=== PATIENT | female | born 1945 | race Hispanic/Latino ===

== ENCOUNTER → 2019-03-05 | Day surgery (SDC) | payer MEDICARE, MEDICAID ==
[~2019-03-05] MED LIST: Phenylephrine 2.5% Ophth Soln 2 ML Bot EYEBOTH SCH; Tropicamide 1% Ophth Soln 15 ML Bottle EYEBOTH SCH; Tropicamide 1% Ophth Soln 3 ML Bottle EYEBOTH SCH
[2019-03-05] MEDS: Brimonidine 0.2% Ophth Soln 5 ML Bottle EYEBOTH SCH ×2 (09:26→10:05)
== END ==
LOC: JD.SDS 09:12
PROVIDERS: ATTEND Ophthalmology
DX: E11.36 Type 2 diabetes mellitus with diabetic cataract (principal); H35.3131 Nonexudative age-related macular degeneration, bilateral, early dry stage; H02.834 Dermatochalasis of left upper eyelid; H02.831 Dermatochalasis of right upper eyelid; H16.223 Keratoconjunctivitis sicca, not specified as Sjogren's, bilateral; I10 Essential (primary) hypertension; E78.00 Pure hypercholesterolemia, unspecified; K21.9 Gastro-esophageal reflux disease without esophagitis; M19.90 Unspecified osteoarthritis, unspecified site; Z96.1 Presence of intraocular lens; Z87.891 Personal history of nicotine dependence; Z79.84 Long term (current) use of oral hypoglycemic drugs; Z79.899 Other long term (current) drug therapy

== ENCOUNTER 2019-09-17 09:44 | Day surgery (SDC) | payer MEDICARE, MEDICAID ==
[~2019-09-17 09:44] MED LIST changes: +Lactated Ringers 1,000 ML IV SCH; +Lidocaine 1%/Sod Bicarbonate in NS 8.4% 1 ML Syringe IDERM PRN; -Phenylephrine 2.5% Ophth Soln 2 ML Bot EYEBOTH SCH; +Sodium Chloride 0.9% 10 ML Syringe FLUSH PRN; -Tropicamide 1% Ophth Soln 15 ML Bottle EYEBOTH SCH; -Tropicamide 1% Ophth Soln 3 ML Bottle EYEBOTH SCH
[2019-09-17] MEDS ORDERED: Sodium Chloride 0.9% 1,000 ML IV SCH (10:00)
--- NOTE | 2019-09-17 10:33 | PCM.PREANE ---
Preanesthetic Assessment - Procedure Proposed Procedure: EGD, Colonoscopy - Anesthesia/Transfusion/Family Hx Anesthesia History: Prior Anesthesia Without Reaction Family History of Anesthesia Reaction: No Transfusion History: No Prior Transfusion(s) - Review of Systems General: No Symptoms Pulmonary: No Symptoms Cardiovascular: Palpitations ("not today but every once in a while"), Dyspnea on Exertion Gastrointestinal: No Symptoms Neurological: No Symptoms Other: Reports: Diabetes (136 this am 1111), Liver Problems (fatty liver) - Physical Assessment NPO Status Date: 09/16/19 NPO Status Time: 00:00 Height: 1.6 m Weight: 68.946 kg ASA Class: 3 Mental Status: Alert & Oriented x3 Airway Class: Mallampati = 2 Dentition: Reports: Dentures Thyro-Mental Finger Breadths: 2 Mouth Opening Finger Breadths: 2 ROM/Head Extension: Full Lungs: Clear to Auscultation, Normal Respiratory Effort Cardiovascular: Regular Rate, Regular Rhythm, Bradycardia - Imaging/EKG Impressions: EKG Sinus rhythm, anterior infract age indeterminate Rate 53 - Allergies Allergies/Adverse Reactions: Allergies Allergy/AdvReac Type Severity Reaction Status Date / Time Penicillins Allergy Cannot Verified 09/16/19 14:43 Remember - Blood Blood Available: No Product(s) Available: None - Anesthesia Plan Pre-Op Medication Ordered: None - Acknowledgements Anesthesia Type Planned: MAC Pt an Appropriate Candidate for the Planned Anesthesia: Yes Alternatives and Risks of Anesthesia Discussed w Pt/Guardian: Yes Pt/Guardian Understands and Agrees with Anesthesia Plan: Yes PreAnesthesia Questionnaire HEENT History: Reports: Hard of Hearing, Other (See Below) Other HEENT History: Eye disorder, hearing loss, tinnitis Cardiovascular History: Reports: Heart Failure, High Cholesterol, Hypertension, Other (See Below) Other Cardiovascular History: edema Respiratory History: Reports: None Gastrointestinal History: Reports: GERD Genitourinary History: Reports: Other (See Below) Other Genitourinary History: dysuria, UTI [employer] History: Reports: None Musculoskeletal History: Reports: Arthritis, Back Pain, Chronic, Osteoarthritis Neurological History: Reports: Vertigo Psychiatric History: Reports: Other (See Below) Other Psychiatric History: fatgiue, sleep disturbance Endocrine/Metabolic History: Reports: Diabetes, Type II, Other (See Below) Other Endocrine/Metabolic History: parathyroid adenoma, elevated parathyroid hormone Hematologic History: Reports: None Immunologic History: Reports: Other (See Below) Other Immunologic History: anemia, lymphopenia Oncologic (Cancer) History: Reports: Breast Dermatologic History: Reports: Other (See Below) Other Dermatologic History: rosacea - Past Surgical History Head Surgeries/Procedures: Reports: None HEENT Surgical History: Reports: Cataract Surgery Cardiovascular Surgical History: Reports: None Respiratory Surgical History: Reports: None GI Surgical History: Reports: Cholecystectomy Female Surgical History: Reports: Hysterectomy Endocrine Surgical History: Reports: None Neurological Surgical History: Reports: None Musculoskeletal Surgical History: Reports: None Oncologic Surgical History: Reports: Mastectomy - SUBSTANCE USE Smoking Status *Q: Former Smoker Tobacco Use Within Last Twelve Months: No Second Hand Smoke Exposure: No Days Per Week of Alcohol Use: 0 Number of Drinks Per Day: 0 Total Drinks Per Week: 0 Recreational Drug Use History: No - HOME MEDS Home Medications: Home Meds Gemfibrozil 600 mg PO DAILY 03/04/19 [History] Glimepiride [Amaryl] 2 mg PO DAILY 03/04/19 [History] Omeprazole 20 mg PO DAILY 03/04/19 [History] metFORMIN HCl [Metformin HCl] 1,000 mg PO BID 03/04/19 [History] metroNIDAZOLE [Metronidazole] 1 dose TOP BID PRN 03/04/19 [History] Dulaglutide [Trulicity] 1.5 mg SQ Q7D 09/16/19 [History] Ferrous Sulfate [Iron] 325 mg PO DAILY 09/16/19 [History] Furosemide 20 mg PO DAILY 09/16/19 [History] Gemfibrozil 600 mg PO DAILY 09/16/19 [History] Spironolactone [Aldactone] 25 mg PO DAILY 09/16/19 [History] Valsartan [Diovan] 320 mg PO DAILY 09/16/19 [History] amLODIPine [Norvasc] 2.5 mg PO BEDTIME 09/16/19 [History] - CURRENT (IN HOUSE) MEDS Current Meds: Current Medications Lactated Ringer's (Ringers, Lactated) 1,000 mls @ 125 mls/hr IV ASDIRECTED KELSIE Stop: 09/17/19 23:00 Lidocaine/Sodium Bicarbonate (Buffered Lidocaine 1% In Ns 8.4%) 0.25 ml IDERM ONETIME PRN PRN Reason: Prior to IV Start Stop: 09/17/19 18:00 Sodium Chloride (Saline Flush) 10 ml FLUSH ASDIRECTED PRN PRN Reason: Keep Vein Open Stop: 09/17/19 18:00
[2019-09-17] MEDS ORDERED: Propofol 200 MG/20 ML SDV ONE ×3 (11:03→12:18)
[2019-09-17] MEDS ORDERED: fentaNYL 100 MCG/2 ML SDV ONE (11:04)
[2019-09-17] MEDS ORDERED: Lidocaine 1% 4 ML ONE (11:04)
--- NOTE | 2019-09-17 12:53 | PCM.PRNOTE ---
- Free Text/Narrative Note: Date: 09/17/2019 Endoscopist: Leobardo Flores MD Diagnosis: GI bleed Procedure: upper and lower endoscopy Findings: gastric polyps, extensive diverticulosis of the sigmoid colon with redundant sigmoid making passage with the colonoscopy very difficult. Single sigmoid sessile polyp biopsied with hot snare. Detailed Report: The patient was taken to the GI suite and placed in left lateral decubitus position. A bite-block was placed, and monitored sedation initiated. Timeout was performed. The endoscope was advanced through the mouth all the way to the second portion of the duodenum. The duodenal mucosa appeared normal. There were polypoid lesions noted in the stomach, as well as a small submucosal lesion near the pylorus. In total, 3 biopsies were obtained. On retroflexion, no significant hiatal hernia was noted. The Z line appeared normal, without evidence of reflux esophagitis. Next, colonoscopy was completed. Visual inspection of the anus revealed no abnormality. Digital rectal exam was unremarkable. The colonoscope was advanced all the way to the ileocecal valve. Advancing beyond the sigmoid colon was extremely difficult and took quite a bit of time. It was made all the more difficult due to extensive diverticular disease. The prep was fair. From the cecum, the scope was retracted slowly and mucosal surfaces were inspected. 1 sessile subcentimeter polyp in the descending colon/sigmoid was biopsied with hot forceps. No other abnormalities were noted. The patient tolerated the procedure well. Leobardo Flores MD General Surgery
--- NOTE | 2019-09-17 12:54 | PCM48HPAN ---
Post Anesthesia Note - EVALUATION WITHIN 48HRS OF ANESTHETIC Vital Signs in Normal Range: Yes Patient Participated in Evaluation: Yes Respiratory Function Stable: Yes Airway Patent: Yes Cardiovascular Function Stable: Yes Hydration Status Stable: Yes Pain Control Satisfactory: Yes Nausea and Vomiting Control Satisfactory: Yes Mental Status Recovered: Yes Vital Signs: Last Vital Signs Temp 36.2 C 09/17/19 10:10 Pulse 57 L 09/17/19 10:10 Resp 16 09/17/19 10:10 BP 175/89 H 09/17/19 10:10 Pulse Ox 99 09/17/19 10:10 - COMMENTS/OBSERVATIONS Free Text/Narrative:: no anesthesia complications noted
== END 2019-09-17 14:10 | disposition home or self-care (01) ==
LOC: JD.SDS 09:44
PROVIDERS: ATTEND Surgery
DX: K29.71 Gastritis, unspecified, with bleeding (principal); D12.5 Benign neoplasm of sigmoid colon; K31.7 Polyp of stomach and duodenum; K57.31 Diverticulosis of large intestine without perforation or abscess with bleeding; Q43.8 Other specified congenital malformations of intestine; K21.9 Gastro-esophageal reflux disease without esophagitis; I25.10 Atherosclerotic heart disease of native coronary artery without angina pectoris; I11.0 Hypertensive heart disease with heart failure; I50.9 Heart failure, unspecified; E11.9 Type 2 diabetes mellitus without complications; E78.00 Pure hypercholesterolemia, unspecified; M19.90 Unspecified osteoarthritis, unspecified site; Z88.0 Allergy status to penicillin; Z79.84 Long term (current) use of oral hypoglycemic drugs; Z87.891 Personal history of nicotine dependence
CPT/HCPCS: 36415; 43239; 45384; 80053; 88305; 88342; 93005; J2001; J2704; J3010; J7030; 00813

== ENCOUNTER 2020-05-20 09:27 | Emergency (ER) | payer MEDICARE, MEDICAID, OTHER ==
--- NOTE | 2020-05-20 10:16 | CR ---
Right shoulder: 3 views of the right shoulder were obtained. Mild degenerative change is noted within the acromioclavicular joint with mostly superior spurring. Mild spurring is noted off the glenoid. Previous sternotomy is noted. No acute fracture, dislocation or other bony abnormality is seen. No abnormal soft tissue calcifications are noted. Inferior hook is noted off the acromion process. Impression: 1. Degenerative change as noted above. 2. No acute bony abnormality is seen. Diagnostic code #2 This report was dictated in MDT
--- NOTE | 2020-05-20 10:19 | EDM.PDOC ---
ED HPI GENERAL MEDICAL PROBLEM - General Chief Complaint: Upper Extremity Injury/Pain Stated Complaint: R SHOULDER INJURY Time Seen by Provider: 05/20/20 09:40 Source of Information: Reports: Patient, Family History Limitations: Reports: No Limitations - History of Present Illness INITIAL COMMENTS - FREE TEXT/NARRATIVE: The patient presents with right shoulder pain. She said last night she was trying to turn off the light and she fell out of her bed and landed on her right shoulder. She has pain with movement. She did not hit her head or hurt her neck. She has no chest pain or abdominal pain. She has no leg pain. Onset: Sudden Duration: Hour(s): Location: Reports: Upper Extremity, Right (shoulder) Quality: Reports: Sharp Severity: Moderate Improves with: Reports: Immobilization Worsens with: Reports: Movement Context: Reports: Trauma (Fell out of bed) Associated Symptoms: Reports: No Other Symptoms Right Shoulder Pain Score (Numeric/FACES): 8 - Related Data Allergies Allergy/AdvReac Type Severity Reaction Status Date / Time Penicillins Allergy Cannot Verified 05/20/20 09:37 Remember Home Meds: Home Meds Glimepiride [Amaryl] 2 mg PO DAILY 03/04/19 [History] Omeprazole 20 mg PO DAILY 03/04/19 [History] gemfibroziL [Gemfibrozil] 600 mg PO DAILY 03/04/19 [History] metFORMIN HCl [Metformin HCl] 1,000 mg PO BID 03/04/19 [History] metroNIDAZOLE [Metronidazole] 1 dose TOP BID PRN 03/04/19 [History] Dulaglutide [Trulicity] 1.5 mg SQ Q7D 09/16/19 [History] Ferrous Sulfate [Iron] 325 mg PO DAILY 09/16/19 [History] Furosemide 20 mg PO DAILY 09/16/19 [History] Spironolactone [Aldactone] 25 mg PO DAILY 09/16/19 [History] Valsartan [Diovan] 320 mg PO DAILY 09/16/19 [History] amLODIPine [Norvasc] 2.5 mg PO BEDTIME 09/16/19 [History] gemfibroziL [Gemfibrozil] 600 mg PO DAILY 09/16/19 [History] traMADol [Ultram] 50 mg PO Q6H PRN #20 tab 08/05/20 [Rx] Past Medical History HEENT History: Reports: Hard of Hearing, Other (See Below) Other HEENT History: Eye disorder, hearing loss, tinnitis Cardiovascular History: Reports: Heart Failure, High Cholesterol, Hypertension, Other (See Below) Other Cardiovascular History: edema Respiratory History: Reports: None Gastrointestinal History: Reports: GERD Genitourinary History: Reports: Other (See Below) Other Genitourinary History: dysuria, UTI [employer] History: Reports: None Musculoskeletal History: Reports: Arthritis, Back Pain, Chronic, Osteoarthritis Neurological History: Reports: Vertigo Psychiatric History: Reports: Other (See Below) Other Psychiatric History: fatgiue, sleep disturbance Endocrine/Metabolic History: Reports: Diabetes, Type II, Other (See Below) Other Endocrine/Metabolic History: parathyroid adenoma, elevated parathyroid hormone Hematologic History: Reports: None Immunologic History: Reports: Other (See Below) Other Immunologic History: anemia, lymphopenia Oncologic (Cancer) History: Reports: Breast Dermatologic History: Reports: Other (See Below) Other Dermatologic History: rosacea - Past Surgical History Head Surgeries/Procedures: Reports: None HEENT Surgical History: Reports: Cataract Surgery Cardiovascular Surgical History: Reports: None Respiratory Surgical History: Reports: None GI Surgical History: Reports: Cholecystectomy Female Surgical History: Reports: Hysterectomy Endocrine Surgical History: Reports: None, Parathyroidectomy Other Endocrine Surgeries/Procedures: 2019 pt states she had sugery removing her parathyroid adenoma Neurological Surgical History: Reports: None Musculoskeletal Surgical History: Reports: None Oncologic Surgical History: Reports: Mastectomy Social & Family History - Tobacco Use Smoking Status *Q: Never Smoker Second Hand Smoke Exposure: No - Caffeine Use Caffeine Use: Reports: Coffee, Soda - Recreational Drug Use Recreational Drug Use: No Review of Systems - Review of Systems Review Of Systems: See Below Constitutional: Reports: No Symptoms Eyes: Reports: No Symptoms Ears: Reports: No Symptoms Nose: Reports: No Symptoms Mouth/Throat: Reports: No Symptoms Respiratory: Reports: No Symptoms Cardiovascular: Reports: No Symptoms GI/Abdominal: Reports: No Symptoms Musculoskeletal: Reports: Other (Right shoulder pain) ED EXAM, GENERAL - Physical Exam Exam: See Below Exam Limited By: No Limitations General Appearance: Alert, No Apparent Distress Ears: Normal External Exam Nose: Normal Inspection Head: Atraumatic, Normocephalic Neck: Normal Inspection, Supple, Non-Tender Respiratory/Chest: No Respiratory Distress, Lungs Clear, Normal Breath Sounds Cardiovascular: Regular Rate, Rhythm, No Edema, No Murmur GI/Abdominal: Soft, Non-Tender, No Organomegaly, No Mass Back Exam: Normal Inspection Extremities: Other (Pain upon palpation to the right anterior shoulder. Good sensation and pulses distally.) Course - Vital Signs Last Recorded V/S: Last Vital Signs Temp 97.8 F 05/20/20 09:34 Pulse 69 05/20/20 09:34 Resp 18 05/20/20 09:34 BP 183/73 H 05/20/20 09:34 Pulse Ox 96 05/20/20 09:34 - Re-Assessments/Exams Free Text/Narrative Re-Assessment/Exam: 05/20/20 10:23 I ordered an x-ray of her shoulder and it shows nothing acute. I will discharge her home. Departure - Departure Time of Disposition: 10:30 Disposition: Home, Self-Care 01 Condition: Good Clinical Impression: Fall Qualifiers: Encounter type: initial encounter Qualified Code(s): W19.XXXA - Unspecified fall, initial encounter Right shoulder strain Qualifiers: Encounter type: initial encounter Qualified Code(s): S46.911A - Strain of unspecified muscle, fascia and tendon at shoulder and upper arm level, right arm, initial encounter - Discharge Information *PRESCRIPTION DRUG MONITORING PROGRAM REVIEWED*: Not Applicable *COPY OF PRESCRIPTION DRUG MONITORING REPORT IN PATIENT JENNIFER: Not Applicable Prescriptions: traMADol [Ultram] 50 mg PO Q6H PRN #20 tab PRN Reason: Pain Referrals: Ruddy Chauhan MD [Primary Care Provider] - Reuben Gayle MD [Physician] - 1 Week Forms: ED Department Discharge Additional Instructions: Ice your shoulder for 15 minutes 3 times per day for 2 days. Take tylenol or motrin for pain. If that does not help, try the ultram. Wear the sling for comfort. Take your arm out of the sling a few times per day and move your shoulder to avoid frozen shoulder. Follow up with Dr Gayle. Sepsis Event Note (ED) - Evaluation Sepsis Screening Result: No Definite Risk - Focused Exam Vital Signs: Vital Signs Temp Pulse Resp BP Pulse Ox 05/20/20 09:34 97.8 F 69 18 183/73 H 96
== END 2020-05-20 11:05 | disposition home or self-care (01) ==
LOC: JD.ED 09:27
DX: S46.911A Strain of unspecified muscle, fascia and tendon at shoulder and upper arm level, right arm, initial encounter (principal); I11.0 Hypertensive heart disease with heart failure; I50.9 Heart failure, unspecified; E78.00 Pure hypercholesterolemia, unspecified; K21.9 Gastro-esophageal reflux disease without esophagitis; E11.9 Type 2 diabetes mellitus without complications; Z90.49 Acquired absence of other specified parts of digestive tract; Z98.890 Other specified postprocedural states; Z79.84 Long term (current) use of oral hypoglycemic drugs; Z88.0 Allergy status to penicillin; Z79.899 Other long term (current) drug therapy; Z90.710 Acquired absence of both cervix and uterus; W06.XXXA Fall from bed, initial encounter
CPT/HCPCS: 73030-26-RT; 73030-RT; 99283; 99283-25